=== PATIENT | female | born 1985 | race Caucasian/White ===

== ENCOUNTER 2018-10-01 20:27 | Emergency (ER) | payer MEDICAID ==
[~2018-10-01] VITALS: Ht 160 cm; Wt 64.9 kg
[2018-10-01 20:31] VITALS: Ht 160 cm; Wt 64.9 kg
[2018-10-02] MEDS ORDERED: KETOROLAC 30 MG INJ IM STA (00:40)
--- NOTE | 2018-10-02 00:47 | ERD ---
ER Documentation Chief Complaint Chief Complaint L foot pain x1 month, no injury, worse last 2 days HPI This is a 32-year-old female who presents emergency department with complaints of left knee pain. Patient complains of pain whenever she walks. Stated that she had a left knee injury couple of days ago. Stated that she was walking, tripped, fell, landed on her left knee on a concrete ground. LMP: Denies headache, head injury, loss of consciousness, dizziness, neck pain, neck stiffness, throat pain, difficulty swallowing, difficulty breathing lying flat, shoulder pain, chest pain, back pain, abdominal pain, nausea, vomiting, constipation, diarrhea, urinary symptoms, or possibility being , loss of bowel and bladder control, difficulty walking due to pain, numbness or tingling sensation, calf pain, recent travel, recent major surgery in the last 3 weeks, calf pain, recent long travel, recent exposure to any illness, recent antibiotic use in the last 3 months, fever, chills, seizures. Past medical history: Surgical history: Social: Denies smoking, use of alcoholic beverages, use of illegal drugs. ROS All systems reviewed and are negative except as per history of present illness. Medications Home Meds Active Scripts Ibuprofen* (Motrin*) 600 Mg Tab, 600 MG PO Q6H PRN for PAIN AND OR ELEVATED TEMP, #30 TAB Prov:JEREL ALVARES 10/02/18 Allergies Allergies: Coded Allergies: No Known Allergy (Unverified , 01/22/15) PMhx/Soc Hx Alcohol Use: No Hx Substance Use: No Hx Tobacco Use: No Physical Exam Vitals Vital Signs Date Temp Pulse Resp B/P (MAP) Pulse Ox O2 O2 Flow FiO2 Time Delivery Rate 10/02/18 98.2 75 18 121/73 99 Room Air 04:20 (89) 10/01/18 98.5 83 17 116/77 100 20:31 (90) Physical Exam Const: No acute distress Head: Atraumatic Eyes: Normal Conjunctiva ENT: Normal External Ears, Nose and Mouth. Neck: Full range of motion. No meningismus. Resp: Clear to auscultation bilaterally Cardio: Regular rate and rhythm, no murmurs Abd: Soft, non tender, non distended. Normal bowel sounds Skin: No petechiae or rashes Back: No midline or flank tenderness Ext: No cyanosis, or edema. Left knee: Tenderness laterally with mild swelling. Full range of motion with pain. No obvious deformity. Skin is not warm to touch. No signs of septic joint. Left calf is no tenderness to palpation. Left ankle is unremarkable. Left pedal pulses within normal limits. Capillary refills to left lower extremity are less than 2 seconds. Bilateral hips are stable and unremarkable. Right lower extremity is unremarkable. Ambulatory with steady gait without pain. Neur: Awake and alert. No neurological deficits. Psych: Normal Mood and Affect Results 24 hrs Laboratory Tests Test 10/02/18 01:00 POC Beta HCG, Qualitative NEGATIVE Current Medications Medications Dose Sig/Facundo Start Time Status Last (Trade) Ordered Route PRN Stop Time Admin Dose Reason Admin Ketorolac 30 mg ONCE STAT 10/02/18 DC 10/02/18 Tromethamine IM 00:40 01:08 (Toradol) 10/02/18 00:42 Procedures/MDM Diagnostic tests: POC urine : Negative. X-ray of the left knee: Unremarkable left knee exam. Treatment: Toradol IM. Gaurav wrap. Crutches. Re-evaluation: Denies knee pain. No neurovascular deficit prior to and after the application of Gaurav wrap. Differential diagnosis I have low suspicion for septic joint, displaced fracture, compartment syndrome. I cannot rule out internal derangement. Final diagnosis: Knee contusion. Prescription: Motrin. Follow-up with PCP in the next 24-48 hours. PCP to refer patient to orthopedic doctor in the next 24-48 hours. PCP to do an MRI in the next couple of weeks if symptoms persist. Come back here in the emergency department for any new symptoms or any worsening symptoms. All questions and concerns were answered. Patient and family members verbalized understanding and agreed with plan of care. Hemodynamically stable on discharge. Departure Diagnosis: Primary Impression: Knee contusion Condition: Stable Additional Instructions: Follow-up with PCP in the next 24-48 hours. PCP to refer patient to orthopedic doctor in the next 24-48 hours. PCP to do an MRI in the next couple of weeks if symptoms persist. Come back here in the emergency department for any new symptoms or any worsening symptoms. JEREL ALVARES Oct 02, 2018 00:47
[2018-10-02] MEDS ORDERED: IBUP-1542 PO (04:00)
[2018-10-02 04:20] VITALS: BP 121/73; PULSE 75; RESP 18
== END 2018-10-02 04:22 | disposition home or self-care (01) ==
LOC: FTE 20:27
DX: S80.02XA Contusion of left knee, initial encounter (principal); W01.0XXA Fall on same level from slipping, tripping and stumbling without subsequent striking against object, initial encounter; Y92.9 Unspecified place or not applicable
CPT/HCPCS: 73562; 81025; 96372; J1885; Z7502